=== PATIENT | male | born 1980 | race Caucasian/White ===

== ENCOUNTER → 2022-12-10 12:50 | Outpatient (CLI) | payer OTHER, SELFPAY ==
--- NOTE | ~2022-12-10 | US_ITS ---
EXAMINATION: US thyroid DATE: 12/10/2022 13:09 INDICATION: Right-sided lump at the neck. TECHNIQUE: Multiple ultrasound images of the thyroid were obtained. COMPARISON: None. FINDINGS: The right thyroid lobe measures 5.2 x 1.7 x 1.3 cm. The left thyroid lobe measures 5.1 x 1.8 x 1.3 c m. No discrete nodules identified. There is normal echotexture, echogenicity and vascular flow throu ghout the thyroid gland. Superficial to the right thyroid lobe and overlying strap muscles at the reg ion of concern is a 3.9 x 2.8 x 1.0 cm flat ovoid subcutaneous mass which is isoechoic and with simil ar echotexture and internal septated architecture as the subcutaneous fat which is statistically most likely to represent a lipoma. No other pathologically enlarged lymphadenopathy or other abnormal mas ses or fluid collections identified. IMPRESSION: 1. Normal thyroid. 2. Nonspecific 3.9 x 2.8 x 1.0 cm subcutaneous mass superficial to the right thyroid and strap muscle s with appearance most consistent with and statistically most likely to represent a lipoma. Reviewed, dictated and finalized at location A. IMPRESSION: 1. Normal thyroid. 2. Nonspecific 3.9 x 2.8 x 1.0 cm subcutaneous mass superficial to the right th yroid and strap muscles with appearance most consistent with and statistically most likely to represent a lipoma.
== END ==
PROVIDERS: PCP Physician Assistant Medical; Visit Provider Physician Assistant Medical
DX: R22.1 Localized swelling, mass and lump, neck (principal)
CPT/HCPCS: 76536

== ENCOUNTER 2023-01-02 00:40 | Day surgery (SDC) | payer OTHER, SELFPAY ==
[2022-12-24 12:52] VITALS: BMI 28.8
--- NOTE | 2022-12-24 12:53 | PC.NURSE ---
Report to the Outpatient Waiting Room, entrance under the green pavilion located off [facility], at time _0630__ on date _01/02/23__. Planned Procedure Time: __829__. Time changes happen often and if your time is changed the preop area will call you the afternoon before. - You and your visitor will be asked to self-screen and do not enter if you have any COVID symptoms. - A mask is optional within the hospital at this time. Patients may have clear liquids (water, carbonated beverages, clear teas, apple juice) until 3 hours prior to surgery with a maximum of 20 ounces. - No food from midnight until time of surgery - Infants may have breast milk until 4 hours before surgery, formula 6 hours prior to surgery. - Children will be allowed to drink immediately following surgery. If applicable, please bring a bottle or sippy cup to assist with drinking. Juice, water, soda, and popsicles are readily available. For infants on formula, please bring formula the day of surgery. Pacifiers are allowed. Take the following medications with a SIP of water the morning of surgery: __no home meds ___ DO NOT STOP ANY OF YOUR OTHER PRESCRIPTION MEDICATIONS PRIOR TO SURGERY ?EXCEPT THE FOLLOWING Medications to discontinue per physician Date to take last dose Please no make-up, nail kinyarwanda, hairspray, perfume, deodorant, or body powder the day of surgery. No jewelry (including any body piercings) or valuables the day of surgery, leave them at home. Please take a shower or bath the night before, or the morning of, surgery with an antibacterial soap. Wear comfortable, loose fitting clothing. Children are encouraged to wear pajamas. - Jewelry must be removed prior to entering the operating room. Rings and piercings that are not removed may be cut off. - The hospital will not accept responsibility for valuables. - Please leave all valuables, including medications, at home the day of surgery. If you are going home after surgery, a licensed public transit bus driver must drive you home. - NO public transportation without another adult if you receive anesthesia. - We recommend that an adult stay with you for 24 hours following discharge. - We also recommend that you do not drive, make important decision, drink alcoholic beverages, or take any drugs that were not prescribed by your health care provider for at least 24 hours after your discharge time. For Pediatric surgeries, we recommend two adults accompany the child home. Follow any additional instructions given to you from your surgeon. If you or anyone in your household have experienced Covid symptoms in the past week, please notify your surgeon or the nurse liaison at the phone number below for possible testing. Telephone instructions given to _patient_and asked if any additional questions and then verbalized understanding. Patient advised to call surgeon office or pre surgery nurse liaison [phone] if any additional questions.
--- NOTE | 2023-01-01 13:33 | WPDANESEPPF ---
Anes - Initial Pre Proc Eval Procedure: Operation Date: 01/02/23 08:30 Proposed Procedures p Excisional Biopsy Right Neck Mass - Alma Delia Eduardo MD Date/Time: 01/01/23 13:33 Surgeon: Alma Delia Eduardo MD Pre Op Diagnosis: right neck mass Patient Data Age: 42 Gender: M Height: 1.73 m Weight: 86.18 kg Allergies Allergy/AdvReac Type Severity Reaction Status Date / Time No Known Allergies Allergy Verified 01/02/23 06:38 Home Medications Medication Instructions Recorded Confirmed Type No Home Medications 12/13/20 01/02/23 History Patient hx anesthesia problems: none Family hx anesthesia problems: none Results Review: All pre-operative results and documents have been reviewed as part of the pre-operative evaluation. [facility] Past Medical History Medical History (Updated 01/01/23 @ 13:34 by Kemar Tomlinson DO) Atrial fibrillation lasted less than 24 hours, converted while in hospital Surgical History Surgical History H/O hand surgery tendon repair [place] teeth extracted Family History Family History Other No pertinent family history Social History Social History Smoking packs per day: 1 Smoking cigarettes per day: 20.0 Years smoked: 5 Smoking pack-years: 5.00 Smoking status: Former smoker Tobacco type: cigarettes Smoking end date: 09/08/02 Alcohol intake: current Alcohol use details: Couple drinks a night, about 3 Substance use: never Substance use type: does not use Living arrangements: with family Occupation/Education: occupation Additional occupation/education comments: [employer] Gender identity (if verbalized by the patient): Male Spiritual care concerns: No Agree to blood products: Yes Anes - Eval Final PreProcedure Day of Procedure 01/01/23 13:33 Patient weight: overweight Heart: regular rate and rhythm Lungs: clear to auscultation Airway: Mallampati scale class II Neurological: alert and oriented Last oral intake: >/= 8 hours ASA classification: III Emergent: no Anesthetic plan: proceed Anesthesia type and monitoring: general GIVS and standard monitoring Results Review: All pre-operative results and documents have been reviewed as part of the pre-operative evaluation. Informed Consent: The patient's anesthetic plan and its attendant risks and benefits were discussed with the patient/family/POA. Questions were solicited and answers provided to the satisfaction of the patient/family/POA.
[2023-01-02] VITALS (8 sets, daily range): BP systolic 114–125; BP diastolic 69–85; PULSE 63–73; RESP 11–17; TEMP 36.6–36.9; O2SAT 98–100
[2023-01-02] MEDS: LACTATED RINGERS 1,000 ML 30 ML IV CONT ×2 (07:22→10:20)
--- NOTE | 2023-01-02 07:25 | WPDHPUPDATE1 ---
History and Physical Update Update Date/Time: 01/02/23 07:25 History and Physical has been reviewed, including an updated exam of the patient. There are NO changes in the patient's condition. Risks, benefits, and alternatives have been discussed and questions answered. Patient agrees to proceed with procedure.
[2023-01-02] MEDS: ceFAZolin 2 GM/D5W 50 ML 2 GM/50 ML BAG IVPB (07:28)
[2023-01-02] MEDS: BUPIVACAINE/EPINEPHRINE 0.5% 10 ML VIAL 50 ML INFILTRATE (07:53)
--- NOTE | 2023-01-02 08:42 | P.OP_ITS ---
Procedure Note - Detailed Date of Procedure 01/02/23 Pre-op Diagnosis right neck mass Post-op Diagnosis Same Procedure Performed Excisional biopsy right-sided neck mass sub muscular measuring 6 x 4 cm Surgeon Alma Delia Eduardo MD Anesthesia General and Local Indications 42-year-old male presenting to the office with a growing right-sided neck mass. Imaging was consistent with likely lipoma. Findings Submuscular neck mass resembling multi lobular lipoma measuring 6 x 4 cm Description of Procedure The patient was taken to the operating room and placed in the supine position. After adequate induction of general anesthesia, the patient was prepped and draped in the normal sterile fashion. A time-out was then done to verify the patient's identity, as well as the procedure being performed. I began by loca lizing the area around the mass in the right neck. I then made an incision over the most central portion of the mass. Upon getting down to the strap muscles, it was noted the mass was deep to this. I then split the strap muscles in the direction of their fibers to gain access to the mass. Once to the area of the mass, it was noted to be most likely a multi lobular lipoma that was not well encapsulated. Using very careful dissection, I was able to carefully shell out the mass. Posteriorly there was noted to be a large vein adherent to the mass which was gently teased off. I was then able to completely excise the mass. The mass was noted to be approximately 6 x 4 cm. It will be sent to pathology for further review. I then copiously irrigated the cavity and no other pathology was noted. I then closed subcutaneous tissue with 3-0 Vicryl suture. The skin was closed with 4-0 Monocryl subcuticular suture. Dermabond was then placed on the wound. The patient tolerated the procedure well and was extubated postoperatively. He will be sent to the recovery room in stable condition. Estimated Blood Loss 5 Drains No Packing No Pathology Yes Complications No immediate complications Condition Stable Disposition PACU [facility] Billing Surgery - Charge Forward: Surgery Billing
== END 2023-01-02 10:50 | disposition home or self-care (01) ==
PROVIDERS: PCP Physician Assistant Medical; Visit Provider Surgery
PROC: (CPT 21554; principal; 2023-01-02 08:30)
DX: D17.0 Benign lipomatous neoplasm of skin and subcutaneous tissue of head, face and neck (principal); Z87.891 Personal history of nicotine dependence
CPT/HCPCS: 21554; 88304; J0330; J0690; J1100; J2250; J2405; J2704; J3010; J7120

== ENCOUNTER 2023-05-24 14:21 | Emergency (ER) | payer OTHER, SELFPAY ==
--- NOTE | ~2023-05-24 | XR_ITS ---
EXAMINATION: XR chest 2V DATE: 05/24/2023 15:07 INDICATION: Crackles in the left lower lobe with cough and fever TECHNIQUE: PA and lateral views of the chest were obtained. COMPARISON: None FINDINGS: Focal airspace opacities in the left lower lobe consistent with pneumonia. Remainder of the lungs are clear. No pulmonary edema, pleural effusion or pneumothorax. The cardiomediastinal silhouette is nor mal. Mild thoracic spondylosis with minimal to mild anterior wedging of a few lower thoracic vertebra l bodies. IMPRESSION: 1. Left lower lobe pneumonia. Reviewed, dictated and finalized at location A.
[2023-05-24 14:39] VITALS: BP 136/88; PULSE 80; RESP 18; TEMP 36.1; O2SAT 97
--- NOTE | 2023-05-24 15:09 | ED.URI ---
HPI - URI/Sore Throat General Chief Complaint: Upper Respiratory Infection Stated Complaint: body soreness,sore throat,ear pain Time Seen by Provider: 05/24/23 14:50 Source: patient Mode of arrival: ambulatory Limitations: no limitations History of Present Illness HPI Narrative: Zeeshan is a 43-year-old male patient presenting to the clinic today with complaints of sore throat, left-sided ear pain, fatigue, body aches, cough, and rattling and left side of his chest. He reports this has been going on for 1 week. Symptoms started last Friday with URI symptoms. Did have fever initially the began the week but that has resolved. MD elicited complaint: fever, cough, sore throat and nasal congestion Related Data Allergies Allergy/AdvReac Type Severity Reaction Status Date / Time No Known Allergies Allergy Verified 05/24/23 14:44 Review of Systems Review of Systems: Pertinent positives per HPI. Patient denies any fever, chills, rash, headache, visual changes, dizziness, cough, shortness of breath, chest pain, palpitations, nausea, vomiting, diarrhea, constipation, abdominal pain, or any urinary issues. [facility] Past Medical History Medical History (Updated 05/24/23 @ 15:26 by Kahlil Fernando APRN) Atrial fibrillation lasted less than 24 hours, converted while in hospital Chronic right shoulder pain Other chronic pain Surgical History Surgical History H/O hand surgery tendon repair History of excision of mass excisional bx right sided neck mass sub muscular measuring 6x4 cm 01/02/23 [place] teeth extracted Family History Family History Other No pertinent family history Social History Social History Smoking packs per day: 1 Smoking cigarettes per day: 20.0 Years smoked: 5 Smoking pack-years: 5.00 Smoking status: Former smoker Tobacco type: cigarettes Smoking end date: 09/08/02 Alcohol intake: current Alcohol use details: Couple drinks a night, about 3 Substance use: never Substance use type: does not use Living arrangements: with family Occupation/Education: occupation Additional occupation/education comments: [employer] Gender identity (if verbalized by the patient): Male Spiritual care concerns: No Agree to blood products: Yes Comments At the time of my signature, I reviewed and agree with the nursing past medical, surgical, social, and family history. There is no relevant family history pertinent to the patient complaint. Exam Narrative: General: Well-developed, well nourished, in no apparent distress Head: Normocephalic, atraumatic Eyes: Pupils equally round and reactive to light bilaterally, EOM intact, sclera and conjunctive clear, no discharge, lids normal Ears: TMs intact and clear, ear canals clear, no drainage, grossly hearing normal. Nose: Nares patent, no discharge, no inflammation, no sinus tenderness. Mouth: Oral pharynx without lesions or masses, good dentition, MMM. Neck: Supple, trachea midline, no enlargement of anterior or posterior cervical nodes, no thyroid masses or goiter palpable. Cardio: Regular rate and rhythm, s1 and s2 normal, no murmur appreciated. Resp: Crackles heard over the left lower lobe, no rhonchi, wheezing or rubs Course Course Emergency Course: Portions of this record may have been created with voice recognition software. Level of Care: Express Care Visit Vital Signs Vital signs: Vital Signs Temperature 36.1 C L 05/24/23 14:39 Pulse Rate 80 05/24/23 14:39 Respiratory Rate 18 05/24/23 14:39 Blood Pressure 136/88 05/24/23 14:39 Pulse Oximetry 97 05/24/23 14:39 Temperature 36.1 C L 05/24/23 14:39 Pulse Rate 80 05/24/23 14:39 Respiratory Rate 18 05/24/23 14:39 Blood Pressure 136/88 /
== END 2023-05-24 15:40 | disposition home or self-care (01) ==
PROVIDERS: Emergency Provider Nurse Practitioner Family; PCP Physician Assistant Medical
DX: J18.1 Lobar pneumonia, unspecified organism (principal); Z87.891 Personal history of nicotine dependence; I48.91 Unspecified atrial fibrillation
CPT/HCPCS: 71046; 87081; 87880; 99213; G0463

== ENCOUNTER 2023-06-06 11:43 | Outpatient (CLI) | payer OTHER, SELFPAY ==
--- NOTE | ~2023-06-06 | CT_ITS ---
EXAMINATION: CT chest high resolution w con DATE: 06/06/2023 12:09 INDICATION: Pneumonia, abnormal chest x-ray TECHNIQUE: Transaxial computed tomographic images of the chest were obtained after the administration of 75 cc of Omnipaque 350 intravenous contrast. The dose-length product (DLP) was 305.88 mGy-cm. Ite rative reconstruction was used. COMPARISON: 05/30/2023 FINDINGS: There are minimal areas of discoid atelectasis in the left lower lobe. A few patchy airspac e opacities are also seen in the left lower lobe. No pleural effusion or pneumothorax. No pathologica lly enlarged thoracic lymph nodes are identified. The heart size is normal. There is an old healed fr acture of the left clavicle. The liver is diffusely low in attenuation when compared with the spleen, consistent with hepatic steatosis. There is mild thoracic spondylosis. IMPRESSION: 1. Near complete resolution of left lower lobe pneumonia. 2. Diffuse hepatic steatosis. Reviewed, dictated and finalized at location F.
== END 2023-06-06 11:44 ==
PROVIDERS: PCP Physician Assistant Medical; Visit Provider Physician Assistant Medical
DX: J18.9 Pneumonia, unspecified organism (principal); J98.4 Other disorders of lung; K76.0 Fatty (change of) liver, not elsewhere classified
CPT/HCPCS: 71260; Q9967

== ENCOUNTER 2024-08-18 14:45 | Outpatient (RCR) | payer OTHER, SELFPAY ==
--- NOTE | 2024-07-08 16:48 | PTOPEVAL1 ---
Assessment and note entered by Elena Chatterjee, PT Evaluation Information Assessment Status Evaluation Diagnosis pain in right shoulder, pain in unspecified shoulder ICD-10 Condition Codes (PT) M25.511 Other ICD-10 Condition Codes ( abnormal posture R29.3 PT) Onset >1 year Subjective Information Pt reports feels has been slowly worsening over time but the last two weeks have worsened significantly. History right rotator cuff 5 years ago, physical therapy to address this with dry needling. Reports left also history of clavicle fracture. Reports a year ago even noted when would lay on right shoulder would be painful. Now can't get comfortable at night. 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 Assessment PT Clinical Summary Pt presents with history of chronic pain in the right shoulder, no traumatic onset. He has a highly physical job requiring use of RUE overhead, out to his side, and at odd angles which increases his pain. He shows multiple tight muscles, abnormal posture, but normal strength in all tested planes through external rotation RUE is painful. Special testing is mostly negative with exception of Teres muscle testing for rotator cuff . Also to be noted the schear test for AC joint separation was negative however taping to the AC joint provided immediate pain relief. Through observation and reports it does appear as though patient's pain is largely AC joint related in nature with possible grade 1-2 strain. Pt will benefit from therapy to improve alignment, postures, AC joint stability, and pain. But may also benefit from an ortho consult to assess level of possible damage to AC joint. Plan of Care Interventions Electrical Stimulation,Hot Pack/Cold Pack,Manual Therapy,Neuro Re-education,Patient/Caregiver Educati,Therapeutic Activities,Therapeutic Exercise,Self-Care/Home Management,Ultrasound, Other Other Interventions Taping PT Services Indicated Yes Treatment Frequency and 1-2x weekly x 8 visits Duration These treatments will address the objective and functional deficits as defined above. The patient will be advanced safely and appropriately in order for the patient to progress towards his/her prior level of function. Additional exercises will be introduced and as well as a comprehensive home exercise program upon discharge, if needed, ?to ensure carryover of functional gains achieved in the clinic. This treatment plan has been reviewed and agreement upon by the patient.
--- NOTE | 2024-07-08 16:48 | OPREHPOC ---
Outpatient Therapy Plan of Care This is a Multidisciplinary Plan of Care that may contain components documented by all disciplines (PT, OT, and ST.) PT Problem 1 PT Problem #1 Knowledge Deficit PT Goal 1 Goal / Goal Update Pt will be independent in HEP Pt will verbalize understanding of diagnosis and prognosis Target Visit 4 PT Problem 2 PT Problem #2 Pain PT Goal 1 Goal / Goal Update Pt will report greatest pain level at 3/10 or less to improve ADLs and activities Target Visit 4 PT Goal 2 Goal / Goal Update Pt will report resolution of pain to return to PLOF Target Visit 8 PT Problem 3 PT Problem #3 Impaired Functional ADLs PT Goal 1 Goal / Goal Update Pt will report ability to sleep with 75% or greater improvement in quality of sleep Target Visit 4 PT Goal 2 Goal / Goal Update Pt will report ability to perform work activities as needed without pain Target Visit 8
--- NOTE | 2024-08-18 15:37 | PTOPDC ---
Assessment and note entered by Elena Chatterjee, PT Evaluation Information Assessment Status Discharge Diagnosis pain in right shoulder, pain in unspecified shoulder ICD-10 Condition Codes (PT) Pain in right shoulder M25.511 Other ICD-10 Condition Codes ( abnormal posture R29.3 PT) Onset >1 year Subjective Information Pt reports has been able to leave the tape off a couple days initially a couple days but wasn't dong any strengthening yet. Was able to leave off 6 hours Friday and be ok. Has been taking Ibuprofen for the last two days because of illness so doesn't know if he is having pain in the shoulder or not because of ibuprofen and tylenol. Sleeping at night is still the same, but also he does have better quality of sleep by 80% . Taping at the AC joint keeps the joint from pain. but also reports having a hard week on his body. States still has difficulty with dressing without tape in place Perceived Improvement: 40% overall Reported Pain Level Pain Score 0: Self Report Assessment PT Clinical Summary Pt has attended therapy consistently for right shoulder pain. Since initiation of the acromioclavicular joint taping, he reports significant improvement in the right shoulder pain with use. However with use without the stability taping, has increased pain though not up to the level he was previously. He does have a history of right rotator cuff deficit he addressed with therapy years ago, but diagnosis related such as tear, strain, or tendinopathy is unknown as this was five years ago. He continues to have pain at night sleeping, but reports his sleeping is improved overall. His pain though continues to range from 0-7/10 at times. Even with minimal (+) special testing at this time for tears and labral issue, he does continue to demonstrate acromioclavicular instability and pain suggestive of significant joint sprain. Pt appears to have reached maximal benefit for physical therapy at this time and is thus being discharged. He would benefit from further imaging and possible orthopaedic consult to address underlying issues. Plan of Care PT Services Indicated No
== END 2024-08-19 08:28 | disposition home or self-care (01) ==
LOC: ANHHIPT 14:45
PROVIDERS: PCP Physician Assistant Medical; Visit Provider Physician Assistant Medical
DX: M25.511 Pain in right shoulder (principal)
CPT/HCPCS: 97014; 97110; 97140; 97161; 97750; G0283